=== PATIENT | male | born 1990 | race Caucasian/White ===

== ENCOUNTER 2017-04-03 18:00 | Emergency (ER) | END 2017-04-03 20:36 | disposition left against medical advice (07) | LOC: M ED 18:00 | DX: S69.91XA Unspecified injury of right wrist, hand and finger(s), initial encounter (principal); Z53.21 Procedure and treatment not carried out due to patient leaving prior to being seen by health care provider ==

== ENCOUNTER 2018-05-27 14:00 | Emergency (ER) | payer OTHER ==
[~2018-05-27] VITALS: Ht 175.3 cm; Wt 97.7 kg
[2018-05-27 14:00] VITALS: BP 163/83
[2018-05-27] MEDS ORDERED: IBUP-1022 PO (14:05)
[2018-05-27] MEDS ORDERED: KEFL500C17 PO (15:22)
[2018-05-27] MEDS ORDERED: MICO2CRE33 TOP (15:22)
--- NOTE | 2018-05-27 15:35 | REP ---
RIGHT FOOT, FOUR VIEWS: HISTORY: Pain. There is no acute fracture or dislocation. The joint spaces are normal in appearance. IMPRESSION: There is no acute fracture or dislocation. Electronically Signed by Eugenio Reich MD 05/27/2018 03:36 P
== END 2018-05-27 15:28 | disposition home or self-care (01) ==
LOC: M ED 14:00
DX: B35.3 Tinea pedis (principal); M79.89 Other specified soft tissue disorders

== ENCOUNTER → 2020-02-23 | Outpatient (CLI) | payer OTHER ==
[~2020-02-23] MED LIST: IBUP-1022 PO; KEFL500C17 PO; MICO2CRE42 TOP
--- NOTE | 2020-02-24 12:39 | ECHO ---
DATE OF PROCEDURE: 02/23/2020 Age: 29 Gender: Male Height: 175 cm Weight: 95.3 kg REFERRING PHYSICIAN: Arnold Casas M.D. INDICATION: Palpitations. MEASUREMENTS: 2D Measurements: Left atrium 3.9 cm Intraventricular septum 1.33 cm Posterior wall 1.28 cm Left ventricle diastole 4.65 cm Aortic root 3.3 cm Left atrial volume index 28 cm Inferior vena cava 1.9 cm with more than 50% respiratory variation Doppler Measurements: No aortic regurgitation No aortic stenosis Aortic valve velocity 110 cm/s LVOT velocity 84.2 cm/s Mild mitral regurgitation Mitral E velocity 103 cm/s Mitral A velocity 43.9 cm/s Mitral deceleration time 201 msec Mild tricuspid regurgitation Estimated right ventricular systolic pressure 30-35 mmHg Estimated right atrial pressure 5-10 mmHg Trace pulmonic regurgitation Pulmonary artery acceleration time 148 msec MITRAL ANNULAR TISSUE DOPPLER E prime septal 8.0 cm/s, E prime lateral 13.1 cm/s DESCRIPTION: Rhythm was sinus. Image quality was good. This was a 2D, M-mode, color flow Doppler, and pulsed wave Doppler examination including mitral annular tissue Doppler. CONCLUSIONS: 1. Normal left ventricle internal dimensions. Mild concentric left ventricular hypertrophy. Normal regional left ventricular (LV) wall motion and wall thickening. Normal left ventricular (LV) systolic function. Left ventricular ejection fraction (LVEF) of 65% by visual estimate. Normal LV diastolic function. 2. Suggestive of estimated right ventricle systolic pressure to be near the upper limits of normal to mildly elevated. 3. Otherwise normal echocardiogram Doppler findings. MTDD
== END ==
LOC: M CARPUL 10:17
PROVIDERS: ATTEND Internal Medicine
DX: R00.2 Palpitations (principal)